=== PATIENT | female | born 1980 | race Caucasian/White ===

== ENCOUNTER 2020-11-11 14:35 | Emergency (ER) | payer SELFPAY ==
[~2020-11-11] VITALS: Ht 144.8 cm; Wt 63.5 kg
[~2020-11-11 14:35] MED LIST: PREDNISONE; PRENATAL VITS.
[2020-11-11 14:51] VITALS: BP 117/72
--- NOTE | 2020-11-11 18:45 | NUR ---
PT BIB SELF C/O VAGINAL BLEEDING X 6 WEEKS, VAGINAL PAIN & LUMP AT RIGHT LABIA X 4 DAYS. LMP 09/30/20, ER MD WILSON, PAIN 2/10-MILD CRMPING OFF AND ON. PT DENIES N/V/D; SKIN IS INTACT, PINK/WARM/DRY; AAOX4, PERRL, WITH EVEN AND STEADY GAIT; LUNGS CLEAR BL, BREATHING UNLABORED; HR EVEN AND REGULAR, BL PERIPHERAL PULSES PRESENT; BS ACTIVE X4, NO TENDERNESS TO PALPATION. PT DENIES ANY FEVER, CP, SOB, OR COUGH AT THIS TIME; PT STATES 2/10 PAIN AT THIS TIME; VSS; PATIENT POSITIONED FOR COMFORT; HOB ELEVATED; BEDRAILS UP X2; BED DOWN.
[2020-11-11 18:47] LABS: BASOPHILS # (AUTO) 0.1 K/uL (0.00-0.22); BASOPHILS % (AUTO) 0.5 % (0.0-2.0); EOSINOPHILS # (AUTO) 0.2 K/uL (0-0.4); EOSINOPHILS % (AUTO) 1.9 % (0.0-4.0); HEMOGLOBIN 9.5 g/dL (12.0-16.0); LYMPHOCYTES # (AUTO) 1.7 K/uL (2.5-16.5); LYMPHOCYTES % (AUTO) 15.1 % (20.5-51.1); MEAN CORPUSCULAR HEMOGLOBIN 29 pg (27-31); MEAN CORPUSCULAR HGB CONC 33 g/dL (33-37); MONOCYTES # (AUTO) 0.6 K/uL (0.8-1.0); MONOCYTES % (AUTO) 5.8 % (1.7-9.3); NEUTROPHILS # (AUTO) 8.4 K/uL (1.8-7.7); NEUTROPHILS % (AUTO) 76.7 % (42.2-75.2); PLATELET COUNT (AUTO) 211 K/uL (140-450); RED BLOOD CELL COUNT(AUTO) 3.22 MIL/uL (4.20-5.40); RED CELL DISTRIBUTION WIDTH 19.5 % (11.6-13.7)
[2020-11-11 18:54] LABS: ANION GAP 15.3 (8-16); CARBON DIOXIDE 24.2 mmol/L (21-32); CREATININE 0.8 mg/dL (0.6-1.3); POTASSIUM 3.5 mmol/L (3.5-5.1)
--- NOTE | 2020-11-11 20:30 | NUR ---
PELVIC EXAM COMPLETED BY DAMARI PROCTOR, ACCOMPANIED BY LARRY RN (MYSELF) AND AUSTIN TEJADA.
[2020-11-11] MEDS ORDERED: CLIN300C52 PO (20:38)
[2020-11-11 20:45] VITALS: BP 113/71
--- NOTE | 2020-11-11 20:45 | NUR ---
PT. LEFT WITHOUT DISCHARGE PAPERS.
== END 2020-11-11 20:45 | disposition home or self-care (01) ==
LOC: MED 14:35
DX: N76.4 Abscess of vulva (principal); N93.9 Abnormal uterine and vaginal bleeding, unspecified
CPT/HCPCS: 36415; 80048; 81002; 81025; 85025; 99284